=== PATIENT | male | born 1985 | race Caucasian/White ===

== ENCOUNTER 2025-02-14 19:53 | Emergency (ER) | payer OTHER, SELFPAY ==
[2025-02-14 19:54] VITALS: BP 182/96
--- NOTE | 2025-02-14 20:15 | ED.GENMED ---
History of Present Illness
General
Chief Complaint: Breathing Problem
Source: patient
Exam Limitations: none
Time Seen by Provider: 02/14/25 20:03
Nursing documentation reviewed up to this point in time: agreed with
History of Present Illness
History of Present Illness:
39-year-old male with history as noted presents to the ER for evaluation of cough, chest pain, shortness of breath. Patient reports he has had progressive cough productive of dark brown sputum over the past week. He says he has had associated
nasal congestion and rhinorrhea. Mild sore throat. He says that over the past day or 2 he started develop some left-sided chest discomfort and shortness of breath. Ultimately this prompted him to go to the urgent care to be evaluated. He was
referred to the ER after his initial assessment there. He does report subjective fever/chills particular at nighttime. He has not noted any abdominal pain or diarrhea, has had occasional posttussive emesis but not necessarily nauseous and has had
reasonable appetite. He denies any other acute complaints. He does have a history of walking pneumonia in the past he says that was similar. He is a current non-smoker, quit in 2010.
Past History
Past History
ED Past Medical History: None
Social History
Tobacco: Non-smoker
Personal: Single
Review of Systems
Review of Systems
All Other Systems: ROS reviewed and negative except as documented in HPI and ROS
Constitutional: Reports fever, fatigue and chills
EENT: Reports sore throat and runny nose
Respiratory: Reports cough and trouble breathing
Cardiac: Reports chest pain
ABD/GI: Reports vomiting (Occasional posttussive); Denies abdominal pain, nausea or diarrhea
: Denies flank pain
Musculoskeletal: Denies neck pain or back pain
Neurological: Denies headache
Phy Exam
Physical Exam
Physical Exam:
General: Awake, alert, oriented x3; mild tachypnea but nontoxic-appearing
Head: Normocephalic, atraumatic
Eyes: Conjunctiva normal, sclera anicteric
Throat: Airway intact, handling secretions
Neck: Trachea midline, no JVD noted
Lungs: Patient has tachypnea but no hypoxia, scattered expiratory wheeze and frequent hacking cough
Heart: Tachycardia with regular rhythm, no murmurs, gallops, or rubs
Abd: Soft, non distended, nontender
Neuro: Grossly intact and ambulatory
Skin: Warm and dry
Extremities: No edema in extremities, equal pulses in all extremities
Scores
Heart Failure Risk
Heart Failure Risk Score: Not Applicable
Heart Score for Chest Pain Patients
STEMI patient?: Not applicable
Withdrawal Assessment of Alcohol
Withdrawal Assessment Completed?: Not applicable
Course
Orders/Labs/Results
Orders:
Orders
02/14/25 19:53
ECG [Electrocardiogram (*1)] Urgent
Reason for Study: Shortness of Breath
02/14/25 19:54
EKG- Treatment ONCE
02/14/25 20:15
CT Chest PE Study Urgent
Comment:
Reason For Exam: cough, SOB
Ipratropium/Albuterol Sulfate [Duoneb] 3 ml INH R NOW STA
02/14/25 20:32
Complete Blood Count/With Diff Urgent
Comprehensive Metabolic Panel Urgent
Troponin I Urgent
02/14/25 20:46
Ketorolac [Toradol] 15 mg IV NOW STA
02/14/25 20:47
0.9% Sodium Chloride 1000 ml [Nss] 1,000 ml IV BOLUS
02/14/25 21:54
Doxycycline [Vibramycin] 100 mg PO NOW STA
Prednisone [Deltasone] 50 mg PO NOW STA
Abnormal Lab Results
02/14/25
20:32
WBC 12.6 H 10^3/uL
(4.8-10.8)
Hct 37.9 L %
(39.0-52.0)
Abs Immat Gran (auto) 0.1 H 10^3/uL
(0-0.05)
Absolute Neuts (auto) 9.2 H 10^3/uL
(1.4-6.5)
Absolute Monos (auto) 0.8 H 10^3/uL
(0.1-0.6)
Lymphocytes % 16.5 L %
(20.5-51.1)
Glucose 140 H mg/dl
(70-99)
02/14/25 20:32
02/14/25 20:32
Vital Signs
Initial and Last Documented VS:
Initial Vital Signs
Temp Pulse Resp BP Pulse Ox
36.8 C 99 24 182/96 99
02/14/25 19:54 02/14/25 19:54 02/14/25 19:54 02/14/25 19:54 02/14/25 19:54
Last Documented Vital Signs
Temp Pulse Resp BP Pulse Ox
36.8 C 98 24 146/67 97
02/14/25 19:54 02/14/25 21:54 02/14/25 21:54 02/14/25 21:56 02/14/25 21:54
MDM/Problems Addressed
Differential Diagnosis Includes:
Bronchitis, pneumonia, PE, pneumothorax, costochondritis, CHF less likely
MDM/Problems Addressed:
39-year-old male with history as documented presents for evaluation of hacking productive cough associated with chest pain and shortness of breath. Vitals and exam as above. He is hypertensive and mildly tachypneic with mild tachycardia. No
hypoxia. Physical exam as noted. He was initially assessed at urgent care I was able to review his chest x-ray�report from urgent care was that was abnormal no acute abnormality noted on my review. Will plan to place an IV check labs including
CBC and a CMP. Check an EKG and troponin. Will check CT chest. Through the DuoNeb, pain control, fluids. Reassess after the above.
Labs reviewed: CBC shows mild leukocytosis to 12.6. Chemistry no clinically significant abnormality. Troponin undetectable with symptoms for days this is sufficient to rule out acute NV. CT chest shows no PE, scarring of the left lung but no
acute abnormalities otherwise. Overall clinical picture seems most consistent with an acute bronchitis however given his leukocytosis and report of a productive cough I think will be reasonable to cover for occult/developing pneumonia. On clinical
reassessment he did report some improvement with DuoNeb here. His blood pressures improved. He has a little tachycardia after neb treatment. He has mild tachypnea but does not appear labored and his oxygen saturation is appropriate on room air.
Overall I think he is a reasonable candidate for discharge on oral steroids and antibiotics with albuterol as needed. He feels most comfortable with this plan. We did speak about follow-up plan and return precautions and all questions answered.
Acute Exacerbation and/or Progression of Chronic Illness:
Acutely hypertensive improving without intervention continue to monitor but no additional antihypertensives indicated at this point
Acute Exacerbation and/or Progression of Chronic Illness: HTN
*Radiology
Radiology exam reviewed: radiology read reviewed
*Pulse Oximetry
SaO2: 99
Oxygen Mode of Delivery: Room air
Patient hypoxic: no (99%)
*EKG
Interpreted by ED Provider?: Yes
Heart Rate: 102
Rate: tachycardiac
Rhythm: sinus and sinus tachycardia
[place]: normal axis
Interval: normal interval
QRS Pattern: normal QRS
Ischemia: no ischemia
*Critical Care Note
Total Time (30-74mins, 75-104mins- exclusive of procedures): Not Applicable
Data Reviewed
Source: patient and records
Patient Management
Escalation/DeEscalation of care consider admission/obs:
Considered need for admission but patient generally well-appearing, improved with ER treatment, opted for trial of outpatient management
ED Attending Note
-
Portions of this chart may have been created with voice recognition software.� Occasional wrong word or��sound alike� substitutions may have occurred due to the inherent limitations of voice recognition software.
Discharge Plan
Departure
Patient Disposition: Home (Routine Discharge)
Date of Disposition: 02/14/25
Time of Disposition: 21:56
Patient with high blood pressure during this ER visit?: Yes
Discharge Problem:
Acute bronchitis
Instructions: Acute Bronchitis, Adult (DC)
Prescriptions:
New
prednisone 10 mg Tablet
See Rx Instructions .ROUTE .COMPLEX Qty: 30 0RF
Rx Instructions:
Take By Mouth:
40 mg daily x3 days, 30 mg daily x3 days,
20 mg daily x3 days, 10 mg daily x3 days.
doxycycline hyclate 100 mg capsule
100 mg PO BID Qty: 14 0RF
albuterol sulfate [Ventolin HFA] 90 mcg/actuation HFA aerosol inhaler
2 puff inhalation QID PRN (Reason: shortness of breath or wheezing) Qty: 6.7 0RF
No Action
azithromycin 250 MG tablet
250 mg PO DAILY Qty: 4 0RF
Referrals:
NONE,* [Family Provider, Internal Medicine]
Stand Alone Forms: Return to Work
Activity Restrictions/Additional Instructions:
Thank you for visiting the Emergency Department at [facility].
1. Please schedule a follow up appointment as directed. Call first thing tomorrow morning to make an appointment.
2. If indicated, please take your medications as instructed and indicated on discharge paperwork.
3. If any of your symptoms do not improve, or persist, or become more severe within 6-12 hours, please return to the emergency department for further care.
4. Please return to the emergency department if you develop a headache, neck pain/stiffness, fever greater than 100.4F, chest pain, shortness of breath, persistent nausea, vomiting, slurred speech, difficulty walking, numbness/tingling, weakness,
signs of infection or any other symptoms that are worrisome to you.
Please call [phone] if you have any questions.
Interventions
Interventions:
*Risk Screen - Suicide Last Done: 02/14/25 20:19
*General Assessment Last Done: 02/14/25 19:54
*Neglect/Abuse Screening Last Done: 02/14/25 20:19
*ED- Fall Risk Assessment Last Done: 02/14/25 20:19
*ED COVID-19 Vaccine History Last Done: 02/14/25 20:19
*ED Influenza Vaccine History Last Done: 02/14/25 20:19
ED- Cardiac Assessment Last Done: 02/14/25 20:19
ED- Pulmonary Assessment Last Done: 02/14/25 20:19
Discharge Date and Time
Print Language: FRISIAN
[2025-02-14 20:28] VITALS: BP 148/85
[2025-02-14] MEDS: DUONEB 3 ML INH (20:29)
[2025-02-14 20:43] LABS: Hematocrit 37.9 % (39.0-52.0); Hemoglobin 13.7 g/dL (13.0-18.0); Mean Corp Hgb Conc. 36.1 g/dL (33.0-37.0); Mean Corpuscular Volume 80.3 fL (80.0-94.0); Nucleated Red Blood Cells % 0 % (-); Platelet Count 232 10^3/uL (130-400); Red Cell Dist. Width 13.2 % (11.5-14.5)
[2025-02-14] MEDS: TORADOL 15 MG IV (20:49)
[2025-02-14] MEDS: NSS 1000 IV (20:50)
[2025-02-14 20:57] LABS: ALT (SGPT) 27 U/L (0-50); AST (SGOT) 23 U/L (17-59); Albumin 4.5 g/dl (3.5-5.0); Alkaline Phosphatase 48 U/L (38-126); Blood Urea Nitrogen 14 mg/dl (9-20); Calcium 9.4 mg/dl (8.4-10.2); Carbon Dioxide 28 mmol/L (22-30); Chloride 102 mmol/L (98-107); Glucose 140 mg/dl (70-99); Potassium 3.8 mmol/L (3.5-5.1); Sodium 135 mmol/L (135-145); Total Protein 7.5 g/dl (6.3-8.2); eGFR > 60.00
[2025-02-14 21:08] LABS: Troponin I < 0.012 ng/ml
[2025-02-14 21:54] VITALS: BP 146/67
[2025-02-14 21:56] VITALS: BP 146/67
[2025-02-14 22:00] VITALS: BP 139/73
[2025-02-14] MEDS: VIBRAMYCIN 100 MG PO (22:00)
[2025-02-14] MEDS: DELTASONE 50 MG PO (22:00)
== END 2025-02-14 22:38 | disposition home or self-care (01) ==
LOC: EMR 19:53
PROVIDERS: EMERGENCY PHYSICIAN Emergency Medicine
DX: J20.9 Acute bronchitis, unspecified (principal); Z87.01 Personal history of pneumonia (recurrent)
CPT/HCPCS: 99284; 96374; 94640; 96361; 71275; 80053; 84484; 85025; 93005; Q9967